=== PATIENT | female | born 1985 | race American Indian/Alaskan Native ===

== ENCOUNTER 2020-08-03 18:45 | Emergency (ER) | payer MEDICAID ==
[2020-08-03 18:49] VITALS: BP 109/67
[2020-08-03] MEDS ORDERED: ACETAMINOPHEN 325 MG TAB PO ONE ×2 (19:27→22:18)
--- NOTE | 2020-08-03 19:32 | Emergency Department Report ---
ED General Adult HPI - General Chief complaint: Abdominal Pain Stated complaint: PREG/ABDOMINAL PAIN PUI?: No Time Seen by Provider: 08/03/20 19:05 Source: patient Mode of arrival: Ambulatory Limitations: No Limitations - History of Present Illness Initial comments: Patient is a 35-year-old female LMP June 26, 2020 who presents emergency room for evaluation of abdominal cramping. Patient states that she took a home test on 29 July and it was positive. Patient however states that for the past 2 days her abdominal cramping has been very severe. She ranks it as 8 out of 10 in intensity. Pain is worse over her suprapubic region. She states that the pain is episodic. She denies fevers, chills, vo miting, diarrhea, vaginal discharge, vaginal bleeding. Patient does endorse nausea but states that this has been ongoing since she discovered that she was . On review of systems she endorses foul-smelling urine. Review of systems otherwise negative. Severity scale (0 -10): 8 - Related Data Previous Rx's Medication Instructions Recorded Last Taken Type Nitrofurantoin [place]/M-Cryst 100 mg PO Q12HR 7 Days capsule 08/03/20 Unknown Rx [Macrobid CAP] Allergies Allergy/AdvReac Type Severity Reaction Status Date / Time No Known Allergies Allergy Unverified 08/03/20 18:46 ED Review of Systems ROS: Stated complaint: PREG/ABDOMINAL PAIN Other details as noted in HPI Constitutional: denies: chills, fever Eyes: denies: eye pain, eye discharge, vision change ENT: denies: ear pain, throat pain Respiratory: denies: cough, shortness of breath, wheezing Cardiovascular: denies: chest pain, palpitations Endocrine: no symptoms reported Gastrointestinal: abdominal pain, nausea. denies: vomiting, diarrhea, hematemesis Genitourinary: other (Foul-smelling urine). denies: urgency, dysuria, frequency, hematuria, discharge Musculoskeletal: denies: back pain, joint swelling, arthralgia Skin: denies: rash, lesions Neurological: denies: headache, weakness, paresthesias Psychiatric: denies: anxiety, depression Hematological/Lymphatic: denies: easy bleeding, easy bruising ED Past Medical Hx - Past Medical History Previous Medical History?: No - Surgical History Past Surgical History?: Yes Additional Surgical History: naval correction surgery - Medications Home Medications: Home Medications Medication Instructions Recorded Confirmed Last Taken Type Nitrofurantoin [place]/M-Cryst 100 mg PO Q12HR 7 Days capsule 08/03/20 Unknown Rx [Macrobid CAP] ED Physical Exam - General Limitations: No Limitations General appearance: alert, in no apparent distress - Head Head exam: Present: atraumatic, normocephalic - Eye Eye exam: Present: normal appearance - ENT ENT exam: Present: mucous membranes moist - Neck Neck exam: Present: normal inspection - Respiratory Respiratory exam: Present: normal lung sounds bilaterally. Absent: respiratory distress - Cardiovascular Cardiovascular Exam: Present: regular rate, normal rhythm. Absent: systolic murmur, diastolic murmur, rubs, gallop - GI/Abdominal GI/Abdominal exam: Present: soft, tenderness (Worse over the suprapubic region.), normal bowel sounds. Absent: guarding, rebound, rigid - Extremities Exam Extremities exam: Present: normal inspection - Back Exam Back exam: Present: normal inspection - Neurological Exam Neurological exam: Present: alert, oriented X3 - Psychiatric Psychiatric exam: Present: normal affect, normal mood - Skin Skin exam: Present: warm, dry, intact, normal color. Absent: rash ED Course Vital Signs 08/03/20 18:46 Temperature 98.2 F Pulse Rate 72 Respiratory 18 Rate Blood Pressure 109/67 [Right] O2 Sat by Pulse 97 Oximetry - Reevaluation(s) Reevaluation #1: 08/03/20 23:08 Labs shows evidence to suggest UTI, will treat. US abdomen shows early IUP. Will dc home with antibiotic therapy and PMD follow up. ED Medical Decision Making - Lab Data Result diagrams: 08/03/20 19:30 - Medical Decision Making 35-year-old female presenting with abdominal cramping without vaginal bleeding or discharge. Vital signs stable on ED arrival. Suprapubic region tender to palpation. Give strong consideration to urinary tract infection. Transvaginal ultrasound ordered to rule out intrapelvic etiology such as ectopic or tubo-ovarian abscess. Also to assess for dates. Patient was provided with Tylenol and basic labs are collected. Dispel pending ED work-up. Critical care attestation.: If time is entered above; I have spent that time in minutes in the direct care of this critically ill patient, excluding procedure time. ED Disposition Clinical Impression: Abdominal cramping affecting , UTI (urinary tract infection) Disposition: TO HOME OR SELFCARE Is pt being admited?: No Does the pt Need Aspirin: No Condition: Stable Instructions: Abdominal Pain (ED), and Urinary Tract Infection, Abdominal Pain During , [id number] Prescriptions: Nitrofurantoin [place]/M-Cryst [Macrobid CAP] 100 mg PO Q12HR 7 Days capsule Time of Disposition: 23:07
[2020-08-03 20:06] LABS: Basophils % (Auto) 0.3 % (0.0-1.8); Eosinophils # (Auto) 0.1 K/mm3 (0.0-0.4); Eosinophils % (Auto) 1.7 % (0.0-4.3); Hematocrit 34.8 % (30.3-42.9); Hemoglobin 11.9 gm/dl (10.1-14.3); Lymphocytes # (Auto) 2.4 K/mm3 (1.2-5.4); Lymphocytes % (Auto) 37.3 % (13.4-35.0); Mean Corpuscular HGB Conc 34 % (30-34); Mean Corpuscular Volume 88 fl (79-97); Monocytes # (Auto) 0.4 K/mm3 (0.0-0.8); Monocytes % (Auto) 6.3 % (0.0-7.3); Platelet Count 207 K/mm3 (140-440); Red Blood Count 3.94 M/mm3 (3.65-5.03); Red Cell Distribution Width 14.2 % (13.2-15.2)
[2020-08-03 22:20] LABS: Bacteria,Urine 3+ /HPF (Negative); Bilirubin,Urine NEG (Negative); Blood,Urine NEG (Negative); Color,Urine Straw (Yellow); Protein,Urine <15 mg/dL mg/dL (Negative); RBC,Urine < 1.0 /HPF (0.0-6.0); Urobilinogen,Urine < 2.0 mg/dL (<2.0)
--- NOTE | 2020-08-03 22:45 | Ultrasound Report ---
[facility] OBST[facility] ULTRASOUND HISTORY: Provided clinical history of abdominal cramping COMPARISON: None. TECHNIQUE: Routine transabdominal and transvaginal OB ultrasound performed. FINDINGS: Uterus: Mildly enlarged measuring 10.3 x 6.1 x 7.8 cm. Gestational Sac: Well-defined oval shape and intrauterine in location. Diameter is 1.1 cm with estim ated gestational age of 5 weeks and 6 days. Yolk Sac: Normal in appearance. Fetus/Embryo: [place]-rump length of 0.3 cm, corresponding to an estimated gestational age of 6 weeks a nd 0 days. Embryonic/ anatomy is too small for evaluation. Embryonic/ cardiac activity: 141bpm Placenta: Too small for evaluation. Amniotic fluid volume: Subjectively appropriate for gestational age. Ovaries: The right ovary is normal in size and appearance with normal blood flow, measuring 2.6 x 1. 2 x 1.4 cm. The left ovary is normal in size and appearance with normal blood flow, measuring 3.3 x 1.5 x 2.5. Corpus luteum not visualized. Additional findings: Anechoic foci at the cervix likely represent nabothian cysts. Trace amount of fl uid in the cul-de-sac. Findings slightly obscured by overlying bowel gas. IMPRESSION Early live intrauterine with estimated gestational age of 6 weeks and 1 day. Signer Name: Lico Perkins MD Signed: 08/03/2020 10:41 PM Workstation Name: [id number]
[2020-08-03] MEDS ORDERED: NITROFURANTOIN MONOHYD/M-CRYST 100 MG CAP PO ONE (23:07)
== END 2020-08-03 23:20 | disposition home or self-care (01) ==
LOC: ED 18:45
DX: O23.41 Unspecified infection of urinary tract in pregnancy, first trimester (principal); Z79.899 Other long term (current) drug therapy; Z3A.01 Less than 8 weeks gestation of pregnancy
CPT/HCPCS: 36415; 76817; 81001; 84702; 85025

== ENCOUNTER 2020-10-12 08:08 | Emergency (ER) | payer MEDICAID ==
[2020-10-12] MEDS ORDERED: ACETAMINOPHEN 500 MG TAB PO ONE (08:22)
--- NOTE | 2020-10-12 08:25 | Emergency Department Report ---
ED HPI - General Chief complaint: Vaginal Bleeding Stated complaint: 16WKS /SPOTTING/CRAMPS Time Seen by Provider: 10/12/20 08:20 Source: patient Mode of arrival: Ambulatory Limitations: No Limitations - History of Present Illness Initial comments: 35-year-old female who is currently 16 weeks , G1, P0 Ab0, presents to the ER today with complaints of low abdominal pain and vaginal spotting. Patient states that she started yesterday with mild intermittent lower abdominal pain but then this morning she woke up and she noticed that she was having vaginal spotting. Patient reports increased and more intense lower abdominal pa in this morning. She describes it as a pulling pain. She states that the pain is worse mainly when she is sitting and standing. She denies any UTI symptoms. She states that she is currently being treated with Monistat 7 for yeast infection. She denies any unusual discharge. She denies any abdominal trauma or vaginal trauma. She states that her PERIPHERAL VASCULAR TECH is . She has started visits and last had an ultrasound in September and everything was fine at the time. MD Complaint: abdominal pain, vaginal bleeding -: Gradual Location: abdomen Radiation: LLQ, RLQ, suprapubic - Related Data Previous Rx's Medication Instructions Recorded Last Taken Type Nitrofurantoin [place]/M-Cryst 100 mg PO Q12HR 7 Days capsule 08/03/20 Unknown Rx [Macrobid CAP] Allergies Allergy/AdvReac Type Severity Reaction Status Date / Time No Known Allergies Allergy Unverified 08/03/20 18:46 ED Review of Systems ROS: Stated complaint: 16WKS /SPOTTING/CRAMPS Other details as noted in HPI Comment: All other systems reviewed and negative Constitutional: denies: chills, fever Eyes: denies: eye pain, eye discharge, vision change ENT: denies: ear pain, throat pain Cardiovascular: denies: chest pain, palpitations Gastrointestinal: abdominal pain. denies: nausea, vomiting, diarrhea, constipation, hematemesis, melena, hematochezia Genitourinary: denies: urgency, dysuria, discharge Musculoskeletal: denies: back pain, joint swelling, arthralgia Skin: denies: rash, lesions Neurological: denies: headache, weakness, paresthesias Psychiatric: denies: anxiety, depression Hematological/Lymphatic: denies: easy bleeding, easy bruising ED Past Medical Hx - Past Medical History Previous Medical History?: No - Surgical History Past Surgical History?: Yes Additional Surgical History: naval correction surgery - Social History Smoking Status: Never Smoker Substance Use Type: None - Medications Home Medications: Home Medications Medication Instructions Recorded Confirmed Last Taken Type Nitrofurantoin [place]/M-Cryst 100 mg PO Q12HR 7 Days capsule 08/03/20 Unknown Rx [Macrobid CAP] ED Physical Exam - General Limitations: No Limitations General appearance: alert, in no apparent distress - Head Head exam: Present: atraumatic, normocephalic, normal inspection - Eye Eye exam: Present: normal appearance, PERRL, EOMI Pupils: Present: normal accommodation - Respiratory Respiratory exam: Present: normal lung sounds bilaterally. Absent: respiratory distress - Cardiovascular Cardiovascular Exam: Present: regular rate, normal rhythm, normal heart sounds - GI/Abdominal GI/Abdominal exam: Present: soft, tenderness (mod suprapubic, milder ttp RLQ and LLQ), other (+ gravid abdomen consistent with gestational age). Absent: guarding, rebound - Neurological Exam Neurological exam: Present: alert, oriented X3 - Psychiatric Psychiatric exam: Present: normal affect, normal mood - Skin Skin exam: Present: intact ED Course Vital Signs 10/12/20 10/12/20 10/12/20 08:13 08:26 09:49 Temperature 98.3 F Pulse Rate 75 71 Respiratory 15 16 16 Rate Blood Pressure 103/62 Blood Pressure 91/38 [Left] O2 Sat by Pulse 99 98 Oximetry 10/12/20 10:47 Temperature Pulse Rate 89 Respiratory 18 Rate Blood Pressure Blood Pressure 95/82 [Left] O2 Sat by Pulse Oximetry ED Medical Decision Making - Lab Data Result diagrams: 10/12/20 09:16 10/12/20 09:16 - Radiology Data Patient: TEJ PARDO MR#: [id number] : 1985 Acct:[id number] Age/Sex: 35 / F ADM Date: 10/12/20 Loc: ED Attending Dr: Ordering Physician: CHI RODRIGUES Date of Service: 10/12/20 Procedure(s): US OB >= 14 weeks Fetus Accession Number(s): [id number] cc: CHI RODRIGUES OB Ultrasound HISTORY: 16 weeks gest/vag spotting. TECHNIQUE: Grayscale and color imaging performed. COMPARISON: 08/03/2020 FINDINGS: There is a single viable intrauterine gestation with transverse presentation and anterior placenta which is slightly heterogeneous in appearance but overall indeterminate. Heart rate is 143 bpm. Subjective ELLYN is within normal limits. Overall EGA by ultrasound is 16 weeks and 3 days with an enhancement delivery date of 03/26/2021. The clinical gestational age is 15 weeks and 4 days. The estimated weight is 163 g. Cervical length is 3.9 cm. IMPRESSION: Single viable intrauterine gestation as above. Signer Name: Deny Ordoñez MD Signed: 10/12/2020 9:28 AM Workstation Name: [id number] Transcribed By: BRYANT Dictated By: Deny Ordoñez MD Electronically Authenticated By: Deny Ordoñez MD Signed Date/Time: 10/12/20927 DD/ 4 TD/TT: Print - Medical Decision Making 35-year-old female who is currently 16 weeks , G1, P0 Ab0, presents to the ER today with complaints of low abdominal pain and vaginal spotting. Patient states that she started yesterday with mild intermittent lower abdominal pain but then this morning she woke up and she noticed that she was having vaginal spotting. Patient reports increased and more intense lower abdominal pain this morning. She describes it as a pulling pain. She states that the pain is worse mainly when she is sitting and standing. She denies any UTI symptoms. She states that she is currently being treated with Monistat 7 for yeast infection. She denies any unusual discharge. She denies any abdominal trauma or vaginal trauma. She states that her PERIPHERAL VASCULAR TECH is . She has started visits and last had an ultrasound in September and everything was fine at the time. 1052: Labs reviewed, cmp show elevated AST/ALT 120/151 but otherwise labs including UA negative. Rh A positive, no indication for rhogam at this time. US shows single live IUP measuring 16weeks and 3 days but otherwise nothing acute. Patient currently resting comfortably. She is not in any distress. She is well appearing, not toxic and appears hydrated. Her BP noted to be low but reviewed past visits she her BPs have been typically low and pt does report hx of having low BPs. She has no symptoms related to her low BP. She is neurologically intact with nl gait. She denies any bleeding currently. She has non surgical abd exam including no ttp RUQ. She denies hx of liver disease, ETOH or Tylenol abuse. No indication for further work-up, admission or emergent consult at this time. Discussed lab results, and US result with patient. Recommend d/cing the monistat vag tx given the bleeding, no strenous and sexual activity. Also recommend rest and f/u with OBGYN next week instead of scheduled time on the . Patient given copies of her labs and ultrasound results. Patient expressed understanding of instructions and agree with plan. Patient was stable at time of discharge. Critical care attestation.: If time is entered above; I have spent that time in minutes in the direct care of this critically ill patient, excluding procedure time. ED Disposition Clinical Impression: Threatened miscarriage, Elevated LFTs Disposition: TO HOME OR SELFCARE Is pt being admited?: No Does the pt Need Aspirin: No Condition: Stable Instructions: Threatened Miscarriage Additional Instructions: I recommend discontinuing the Monistat vaginal treatment at this time. You can take Tylenol as needed for pain. I recommend no sexual intercourse and no strenuous activity until follow-up with OB. I recommend that you follow-up with your PERIPHERAL VASCULAR TECH next week, and for continued monitoring of your LFTs as discussed.. If for any reason your symptoms changes or worsens in any way return to the ER immediately. Referrals: PRIMARY CARE, [Primary Care Provider] - 3-5 Days Forms: Work/School Release Form(ED) Time of Disposition: 10:43
[2020-10-12 08:59] LABS: Bacteria,Urine 2+ /HPF (Negative); Bilirubin,Urine NEG (Negative); Blood,Urine NEG (Negative); Color,Urine Yellow (Yellow); Mucus,Urine FEW /HPF; Protein,Urine <15 mg/dL mg/dL (Negative); Urobilinogen,Urine < 2.0 mg/dL (<2.0)
--- NOTE | 2020-10-12 09:33 | Ultrasound Report ---
OB Ultrasound HISTORY: 16 weeks gest/vag spotting. TECHNIQUE: Grayscale and color imaging performed. COMPARISON: 08/03/2020 FINDINGS: There is a single viable intrauterine gestation with transverse presentation and anterior p lacenta which is slightly heterogeneous in appearance but overall indeterminate. Heart rate is 143 bp m. Subjective ELLYN is within normal limits. Overall EGA by ultrasound is 16 weeks and 3 days with an e nhancement delivery date of 03/26/2021. The clinical gestational age is 15 weeks and 4 days. The estim ated weight is 163 g. Cervical length is 3.9 cm. IMPRESSION: Single viable intrauterine gestation as above. Signer Name: Deny Ordoñez MD Signed: 10/12/2020 9:28 AM Workstation Name: [id number]
[2020-10-12 10:13] LABS: Basophils % (Auto) 0.3 % (0.0-1.8); Eosinophils # (Auto) 0.1 K/mm3 (0.0-0.4); Eosinophils % (Auto) 1.3 % (0.0-4.3); Hematocrit 35.6 % (30.3-42.9); Hemoglobin 12.4 gm/dl (10.1-14.3); Lymphocytes # (Auto) 2.1 K/mm3 (1.2-5.4); Lymphocytes % (Auto) 33.3 % (13.4-35.0); Mean Corpuscular HGB Conc 35 % (30-34); Mean Corpuscular Volume 89 fl (79-97); Monocytes # (Auto) 0.5 K/mm3 (0.0-0.8); Platelet Count 201 K/mm3 (140-440); Red Blood Count 3.99 M/mm3 (3.65-5.03); Red Cell Distribution Width 14.3 % (13.2-15.2)
[2020-10-12 10:25] LABS: Alanine Aminotransferase 151 units/L (7-56); Albumin 4.2 g/dL (3.9-5); Blood Urea Nitrogen 9 mg/dL (7-17); Calcium 9.4 mg/dL (8.4-10.2); Hemolysis Index 7
[2020-10-12 10:30] LABS: BUN/Creatinine Ratio 18
[2020-10-12 10:48] VITALS: BP 95/82
== END 2020-10-12 11:13 | disposition home or self-care (01) ==
LOC: ED 08:08
DX: O20.0 Threatened abortion (principal); O26.619 Liver and biliary tract disorders in pregnancy, unspecified trimester; R94.5 Abnormal results of liver function studies; Z3A.16 16 weeks gestation of pregnancy; Z98.890 Other specified postprocedural states; Z79.899 Other long term (current) drug therapy
CPT/HCPCS: 36415; 76805; 80053; 81001; 84702; 85025; 85461; 86850; 86900; 86901